=== PATIENT | male | born 1955 | race Caucasian/White ===

== ENCOUNTER 2024-11-27 16:31 | Emergency (ER) | payer OTHER ==
[~2024-11-27] VITALS: Ht 177.8 cm; Wt 87.0 kg
[2024-11-27] MEDS ORDERED: ASPIRIN 81 MG CHEW ONE (16:39)
[2024-11-27] MEDS ORDERED: NITROGLYCERIN 0.4 MG SUBL SL PRN (16:45)
[2024-11-27] MEDS ORDERED: ASPIRIN 325 MG TAB PO ONE (16:45)
[2024-11-27 16:49] LABS: BASOPHILS 0.8 % (0.2-1.2); EOSINOPHILS 0.7 % (0.8-7.0); LYMPHOCYTES 11.3 % (21.8-53.1); MCH 32.3 PG (25.7-32.2); MCHC 33.8 g/dL (32.3-36.5); MCV 95.6 fL (79.0-92.2); MONOCYTES 9.8 % (5.3-12.2); NEUTROPHILS 77.1 % (34.0-67.9); RBC 4.58 M/uL (4.63-6.08)
[2024-11-27] MEDS ORDERED: OMEPRAZOLE20 MG PO (16:51)
[2024-11-27] MEDS ORDERED: LIPITOR40 MG PO (16:52)
[2024-11-27 16:59] LABS: INR 0.97 (0.80-1.30); PROTIME 12.2 Sec (11.2-14.2)
[2024-11-27] MEDS ORDERED: ASPIRIN 81 MG CHEW PO ONE (17:00)
[2024-11-27 17:11] LABS: ALT (SGPT) 30.0 U/L (14-59); AST (SGOT) 31.0 U/L (15-37); GLOMERULAR FILTRATION RATE,EST 100.0 mL/min (>60); PROTEIN, TOTAL 7.7 g/dL (6.4-8.2); UREA NITROGEN 21.0 mg/dL (7-18)
[2024-11-27] MEDS ORDERED: LIDOCAINE & ANTACID 35 ML BTL PO ONE (18:30)
[2024-11-27 18:40] VITALS: BP 126/82
--- NOTE | 2024-11-28 15:03 | EKG ---
[facility] [address] [place] [address] Signed Normal sinus rhythm Inferior infarct , age undetermined Abnormal ECG No previous ECGs available Confirmed by Lauren Bauer MD () on 11/28/2024 3:03:21 PM Electronically Signed By: LAUREN BAUER MD 11/28/24 1503 PATIENT NAME: CHRISSIE RASMUSSEN Electrocardiogram DATE OF : 59 PHYSICIAN: LAUREN BAUER MD REPORT #: [id number] REPORT IS CONFIDENTIAL AND NOT TO BE RELEASED WITHOUT AUTHORIZATION
== END 2024-11-27 18:40 | disposition home or self-care (01) ==
LOC: ED 16:31
PROVIDERS: Emergency Medicine
DX: R07.89 Other chest pain (principal); E78.00 Pure hypercholesterolemia, unspecified; K21.9 Gastro-esophageal reflux disease without esophagitis; Z79.899 Other long term (current) drug therapy
CPT/HCPCS: 36415; 71045; 80053; 83880; 84484; 85025; 85610; 93005; 93010; 99285-25; A9270